=== PATIENT | female | born 2000 | race Caucasian/White ===

== ENCOUNTER 2021-01-19 19:49 | Emergency (ER) | payer BC ==
[2021-01-19] MEDS ORDERED: Docusate Sodium Liquid 100 MG/10 ML UD Cup PO ONE (21:00)
--- NOTE | 2021-01-19 21:45 | EDM.PDOC ---
ED HPI GENERAL MEDICAL PROBLEM - General Chief Complaint: ENT Problem Stated Complaint: RIGHT EAR IS PLUGGED Time Seen by Provider: 01/19/21 19:54 Source of Information: Reports: Patient History Limitations: Reports: No Limitations - History of Present Illness INITIAL COMMENTS - FREE TEXT/NARRATIVE: HISTORY AND PHYSICAL: History of present illness: Patient is a 20-year-old female who presents to the emergency department secondary to a 12-hour history of foreign body in right ear. Patient states that she normally sleeps with earplugs in both ears. She describes the plugs as small and clear and are moldable to her ear canal. Patient states that she has been sleeping with earplugs for many years. Patient reports that when she woke this morning she could not hear out of her right ear and she tried to remove the ear plug but could not get it out. She believes that when she was trying to remove the earplugs she pushed it further into her ear. Patient reports that this is never happened to her before and that at baseline she has very good hearing. Patient denies any ear pain. Patient denies fever, chills, chest pain, shortness of breath, or cough. Denies headache, neck stiff ness, change in vision, syncope, or near syncope. Denies nausea, vomiting, abdominal pain, diarrhea, constipation, or dysuria. Has not noted any blood in urine or stool. Patient has been eating and drinking appropriately. Review of systems: As per history of present illness and below otherwise all systems reviewed and negative. Past medical history: As per history of present illness and as reviewed below otherwise noncontributory. Surgical history: As per history of present illness and as reviewed below otherwise noncontributory. Social history: See social history for further information Family history: As per history of present illness and as reviewed below otherwise noncontributory. Physical exam: General: Patient is alert, oriented, and in no acute distress. Patient sitting comfortably on exam table. Vitals stable and reviewed by me. HEENT: Atraumatic, normocephalic, pupils equal and reactive bilaterally, negative for conjunctival pallor or scleral icterus, mucous membranes moist, TMs cannot be visualized due to cerumen impaction bilaterally, throat clear, neck supple, nontender, trachea midline. No drooling or trismus noted. No meningeal signs. No hot potato voice noted. Lungs: Clear to auscultation, breath sounds equal bilaterally, chest nontender. Heart: S1S2, regular rate and rhythm without overt murmur Abdomen: Soft, nondistended, nontender. Negative for masses or hepatosplenomegaly. Negative for costovertebral tenderness. Pelvis: Stable nontender. Genitourinary: Deferred. Rectal: Deferred. Skin: Intact, warm, dry. No lesions or rashes noted. Extremities: Atraumatic, negative for cords or calf pain. Neurovascular unremarkable. Neuro: Awake, alert, oriented. Cranial nerves II through XII unremarkable. Cerebellum unremarkable. Motor and sensory unremarkable throughout. Exam nonfocal. Notes: After lateral ear lavage, foreign body ear plug obtained from the left ear. Reevaluation of tympanic membrane show that they are intact bilaterally without any bleeding noted of the external auditory canal. TMS WNL. Signs and symptoms that would prompt return to the emergency department thoroughly discussed with patient. Discussed with patient the importance of following up with primary care. Voices understanding and is agreeable to plan of care. Denies any further questions or concerns at this time. Diagnostics: None Therapeutics: Lateral ear lavage, Colace Prescription: None Impression: Left ear foreign body Bilateral ear cerumen impaction, resolved Plan: 1. Follow-up with a primary care provider as discussed. Return to the ED as ne eded and as discussed. Definitive disposition and diagnosis as appropriate pending reevaluation and review of above. - Related Data Allergies Allergy/AdvReac Type Severity Reaction Status Date / Time amoxicillin Allergy Swelling Verified 01/19/21 20:24 Home Meds: Home Meds Omeprazole 40 mg PO DAILY 01/19/21 [History] Past Medical History Gastrointestinal History: Reports: GERD Musculoskeletal History: Reports: Other (See Below) Other Musculoskeletal History: spinal fusion Social & Family History - Family History Family Medical History: No Pertinent Family History - Caffeine Use Caffeine Use: Reports: None - Recreational Drug Use Recreational Drug Use: No ED ROS GENERAL - Review of Systems Review Of Systems: Comprehensive ROS is negative, except as noted in HPI. ED EXAM, GENERAL - Physical Exam Exam: See Below (see dictation) Foreign Body Removal - Pre-Procedure Indication: Foreign body of left external auditory canal Consent Obtained: Reports: Patient Performing Doctor:: Domi Torres (Removal performed by PA student Arthur Griffith observed and supervised directly by me.) - Post-Procedure Findings:: clear earplug and cerumen Complications:: No Course - Vital Signs Last Recorded V/S: Last Vital Signs Temp 97.6 F 01/19/21 20:22 Pulse 97 01/19/21 20:22 Resp 16 01/19/21 20:22 BP 117/88 01/19/21 20:22 Pulse Ox 98 01/19/21 20:22 - Orders/Labs/Meds Meds: Medications Discontinued Medications Generic Name Dose Route Start Last Admin Trade Name Gold PRN Reason Stop Dose Admin Docusate Sodium 50 mg 01/19/21 21:00 01/19/21 21:14 Docusate Sodium Liquid 100 Mg/10 Ml Ud Cup PO 01/19/21 21:01 50 mg ONETIME ONE Administration Departure - Departure Time of Disposition: 21:44 Disposition: Home, Self-Care 01 Clinical Impression: Bilateral impacted cerumen Foreign body in left ear Qualifiers: Encounter type: initial encounter Qualified Code(s): T16.2XXA - Foreign body in left ear, initial encounter - Discharge Information Instructions: Ear Foreign Body, [id number] Referrals: Prince Lucas MD [Primary Care Provider] - Forms: ED Department Discharge Additional Instructions: The following information is given to patients seen in the emergency department who are being discharged to home. This information is to outline your options for follow-up care. We provide all patients seen in our emergency department with a follow-up referral. The need for follow-up, as well as the timing and circumstances, are variable depending upon the specifics of your emergency department visit. If you don't have a primary care physician on staff, we will provide you with a referral. We always advise you to contact your personal physician following an emergency department visit to inform them of the circumstance of the visit and for follow-up with them and/or the need for any referrals to a consulting specialist. The emergency department will also refer you to a specialist when appropriate. This referral assures that you have the opportunity for follow-up care with a specialist. All of these measure are taken in an effort to provide you with optimal care, which includes your follow-up. Under all circumstances we always encourage you to contact your private physician who remains a resource for coordinating your care. When calling for follow-up care, please make the office aware that this follow-up is from your recent emergency room visit. If for any reason you are refused follow-up, please contact the [facility] Emergency Department at and asked to speak to the emergency department charge nurse. [facility] [address] [place] [id number] [address] [id number] 1. Follow-up with a primary care provider as discussed. Return to the ED as needed and as discussed. Sepsis Event Note (ED) - Evaluation Sepsis Screening Result: No Definite Risk - Focused Exam Vital Signs: Vital Signs Temp Pulse Resp BP Pulse Ox 01/19/21 20:22 97.6 F 97 16 117/88 98
== END 2021-01-19 21:50 | disposition home or self-care (01) ==
LOC: MW.ED 19:49
DX: T16.2XXA Foreign body in left ear, initial encounter (principal); H61.23 Impacted cerumen, bilateral
CPT/HCPCS: 69209; 99282; A9270